=== PATIENT | female | born 1970 | race African-American/Black ===

== ENCOUNTER → 2018-12-25 | Day surgery (SDC) | payer OTHER ==
[~2018-12-25] MED LIST: ALBU2.5V8 INH; AMLO5TAB10 PO; BUDE10.2 IH; HYDROmorphone 2 MG/ML VIAL IV PRN; IV RINGERS,LACTATED 1000ML 1,000 ML IV SCH; LIDOCAINE 1% PF 2 ML VIAL. ID PRN; LIDOCAINE 2% PF 5 ML VIAL. ONE; MORPHINE SULFATE 2 MG/ML VIAL. IV PRN; ONDANSETRON PF 4 MG/2 ML VIAL. IV PRN; PROCHLORPERAZINE 10 MG/2 ML VIAL. IV PRN; PROPOFOL 60 ML IV ONE; SERT50TA PO; fentaNYL PF VIAL 100 MCG/2 ML VIAL IV PRN
[2018-12-25 10:54] VITALS: BP 145/84
--- NOTE | 2018-12-29 18:06 | PATHOLOGY ---
[facility] Accession Number: [id number] . 01 Material submitted: . PART A: small bowel - SMALL BOWEL BIOPSY PART B: stomach - GASTRIC ANTRUM BIOPSY PART C: esophagus - DISTAL ESOPHAGEAL BIOPSY. Modifiers: distal PART D: esophagus - MID ESOPHAGEAL BIOPSY. Modifiers: mid . 01 Clinical history: . Pre-OP DX: Abdominal pain, dysphagia Post-OP DX: Dysphagia, esophagitis, gastritis . 02 Diagnosis: A. Small bowel biopsies: - No significant pathologic abnormalities. . B. Gastric biopsy, antrum: - Chronic gastritis, mild. . C. Esophageal biopsies, distal esophagus: - Segments of hyperplastic squamous esophageal mucosa consistent with reflux esophagitis. . D. Esophageal biopsies, middle esophagus: - Segments of squamous esophageal mucosa identified. . (JPM:esau; 12/29/2018) [facility]/12/29/2018 . 02 Comment: Sections of the small bowel biopsy reveal segments of duodenal mucosa. Where best oriented, the mucosal villi show no sprue-like changes or significant inflammatory changes. . Sections of the gastric antral biopsy show congestion, mild edema, and mild chronic inflammation with scattered admixed eosinophils. A properly-controlled immunoperoxidase stain for Helicobacter is negative for Helicobacter organisms. . Sections of the distal esophageal biopsy reveal segments of tangentially-oriented hyperplastic squamous esophageal mucosa. Focally, there are a few intraepithelial eosinophils. The findings are consistent with reflux esophagitis. There is no evidence of Alcaraz's change, dysplasia, or malignancy. . Sections of the middle esophageal biopsy reveal segments of tangentially-oriented squamous esophageal mucosa showing no significant pathologic abnormalities. . Special stain performed (B1): Immunoperoxidase stain for Helicobacter . (JPM:mml; 12/29/2018) . 02 Electronically signed: . Sage King MD, Pathologist NPI- [id number] . 01 Gross description: . A. Received in formalin labeled "Ermias, Latoschia, small bowel BX," and additionally verified via the problem specimen form as "[place]," are 2 segments of knapp soft tissue measuring 0.9 x 0.3 x 0.3 cm in aggregate dimensions and ranging from 0.4 to 0.5 cm in maximum dimension. The specimen is submitted entirely in cassette A1. . B. Received in formalin labeled "Ermias, Latoschia, gastric antrum," and additionally verified via the problem specimen form as "[place]," is a single segment of knapp soft tissue measuring 0.4 cm in maximum dimension. The specimen is submitted entirely in cassette B1. . C. Received in formalin labeled "Ermias, Latoschia, distal esophageal BX," and additionally verified via the problem specimen form as "[place]," are 2 segments of knapp soft tissue measuring 0.8 x 0.3 x 0.2 cm in aggregate dimensions and ranging from 0.3 to 0.5 cm in maximum dimension. The specimen is submitted entirely in cassette C1. . D. Received in formalin labeled "Ermias, Latoschia, mid esophageal BX," and additionally verified via the problem specimen form as "[place]," are 3 segments of knapp soft tissue measuring 0.8 x 0.8 x 0.1 cm in aggregate dimensions and ranging from 0.3 to 0.4 cm in maximum dimension. The specimen is submitted entirely in cassette D1. (TSD; 12/26/2018) TOB/TOB . 02 Pathologist provided ICD-10: K29.50, K21.0 . 02 CPT . 687399, 893550, 796722, 193531, V82018 Specimen Comment: A courtesy copy of this report has been sent to Specimen Comment: [phone]. Specimen Comment: Report sent to Performed at: 01 [facility] [address] [facility] [address], [place] [id number] MD Mikel Smith MD Phone: [phone] Performed at: 02 [facility] [address] [place], [place] [id number] MD Sage King MD Phone: [phone]
== END ==
LOC: ENDOS 09:13
PROVIDERS: ATTEND Internal Medicine Gastroenterology
DX: K22.2 Esophageal obstruction (principal); K29.50 Unspecified chronic gastritis without bleeding; K21.0 Gastro-esophageal reflux disease with esophagitis; K64.0 First degree hemorrhoids; K44.9 Diaphragmatic hernia without obstruction or gangrene; K22.10 Ulcer of esophagus without bleeding; K63.89 Other specified diseases of intestine
CPT/HCPCS: 43239; 43450; 45378; 88305; 88342; J2001; J2704